=== PATIENT | male | born 1960 | race Caucasian/White ===

== ENCOUNTER 2021-09-07 21:00 | Emergency (ER) | payer SELFPAY ==
[~2021-09-07] VITALS: Ht 167.6 cm; Wt 81.0 kg
[2021-09-07 21:06] VITALS: BP 142/100
[2021-09-07] MEDS ORDERED: TRANEXAMIC ACID 1,000 MG/10 ML IV ONE (22:45)
[2021-09-07] MEDS ORDERED: CEPH500C2 MT (23:36)
== END 2021-09-08 00:39 | disposition home or self-care (01) ==
LOC: ER 21:00
DX: S61.302A Unspecified open wound of right middle finger with damage to nail, initial encounter (principal); X58.XXXA Exposure to other specified factors, initial encounter; Y93.89 Activity, other specified; Y92.89 Other specified places as the place of occurrence of the external cause; Y99.8 Other external cause status
CPT/HCPCS: 96374; 99283; A4217; Z7610